=== PATIENT | male | born 1985 | race Two or more races ===

== ENCOUNTER 2016-07-05 19:00 | Emergency (ER) | payer OTHER ==
[~2016-07-05] VITALS: Ht 177.8 cm; Wt 67.3 kg
[2016-07-05] MEDS ORDERED: BENZONATATE 100 MG CAPSULE PO ONE (21:30)
[2016-07-05 22:21] VITALS: BP 115/63
[2016-07-05 22:32] LABS: INFLUENZA TYPE B NEGATIVE FOR TYPE B (NEGATIVE)
[2016-07-05] MEDS ORDERED: ACETAMINOPHEN 500 MG TABLET PO ONE (22:45)
== END 2016-07-05 22:46 | disposition home or self-care (01) ==
LOC: EMS 19:04
DX: J40 Bronchitis, not specified as acute or chronic (principal)
CPT/HCPCS: 71020; 87804; 99285